=== PATIENT | female | born 1950 | race Caucasian/White ===

== ENCOUNTER 2022-03-05 09:22 | Outpatient (RCR) | payer MEDICARE, OTHER, SELFPAY | END 2023-01-15 23:59 | disposition home or self-care (01) | PROVIDERS: Visit Provider Podiatrist | DX: S82.61XD Displaced fracture of lateral malleolus of right fibula, subsequent encounter for closed fracture with routine healing (principal); Z51.89 Encounter for other specified aftercare ==

== ENCOUNTER 2025-01-19 15:06 | Emergency (ER) | payer MEDICARE, OTHER, SELFPAY ==
--- OUTSIDE RECORDS SUMMARY | 2025-01-19 15:09 | XMS_ITS | Clinical Summary ---
Author Organization [facility] Address [address] [place] [id number] Care Team Providers Care Benefits Consulting Analyst Name Role Phone Shaun Raya DO Primary Care Provider [phone] Allergies Active Allergy Reactions Criticality Noted Date Comments Codeine Atopic Dermatitis,Itching 07/23/2012 Penicillins Other - Describe In Comment Field,Rash Low 07/23/2012 Sulfa (Sulfonamide Antibiotics) Nausea And Vomiting,*Unknown,Ot her - Describe In Comment Field 07/23/2012 Other reaction(s): Other (Comment), Other (See Comments) Stiff joints Joint stiffness Joint stiffness Stiff joints Joint stiffness Medications SUMAtriptan (IMITREX) 100 mg tablet Take 100 mg by mouth every 2 hours. Active clobetasol (TEMOVATE) 0.05 % cream 11/24/19 24 Active rosuvastatin 20 mg tabletIndications: Hyperlipidemia, unspecified hyperlipidemia type TAKE ONE TABLET BY MOUTH ONE TIME DAILY AT BEDTIME 90 Tablet 1 12/31/19 25 Active hydroCHLOROthiazid e 12.5 mg tabletIndications: Essential hypertension TAKE ONE TABLET BY MOUTH ONE TIME DAILY 90 Tablet 1 12/31/19 25 Active rosuvastatin (CRESTOR) 20 mg tabletIndications: Hyperlipidemia, unspecified hyperlipidemia type Take 1 Tablet (20 mg) by mouth at bedtime. 90 Tablet 3 01/12/20 24 025 Discontinued hydroCHLOROthiazid e 12.5 mg tabletIndications: Essential hypertension Take 1 Tablet (12.5 mg) by mouth once daily. 90 Tablet 1 07/11/19 25 025 Discontinued Hospital, Clinic, or Other Facility Administered Medication Ordered Dose Route Frequency Start Date End Date Status denosumab (PROLIA) injection 60 mgIndications:Osteop orosis, unspecified osteoporosis type, unspecified pathological fracture presence 60 mg SubQ Q 26 WEEKS 12/24/2023 12/22/2024 Ended denosumab (PROLIA) injection 60 mgIndications:Osteop orosis, unspecified osteoporosis type, unspecified pathological fracture presence 60 mg SubQ Q 6 MONTHS (24 WEEKS) 06/28/2024 01/12/2025 Ended Active Problems Problem Noted Date Diagnosed Date Allergic rhinitis 12/09/2021 Overview (12/09/2021): dust, mold, ragweed, cottonwood LUNA (dyspnea on exertion) 12/09/2021 H/O malignant neoplasm of skin 12/09/2021 Overview (12/09/2021): 1994 History of breast implant removal 12/09/2021 Overview (12/09/2021): silicone, ruptured, removed 2010 Postmenopausal 12/09/2021 Osteoporosis 04/11/2021 Hx of colonic polyps 03/27/2021 Overview (12/09/2021): Added automatically from request for surgery [id number] BPPV (benign paroxysmal positional vertigo) 12/2020 Agatston CAC score, <100 06/12/2017 Overview (12/09/2021): IMPRESSION: * Total calcium score = 0 Dyslipidemia 05/05/2017 Essential hypertension 05/05/2017 Left bundle branch block (LBBB) 05/05/2017 Migraine headache 02/06/2017 Encounters Date Type Department Care Team Description 01/12/2025 8:45 AM CDT Nurse/Clinic Staff Only [facility] [address] [place] [address] Immunization/Injecti on (PROLIA INJECTION ) 01/12/2025 Travel 01/10/2025 Travel 01/09/2025 Telephone [facility] [address] [place] [address] Shaun Raya, Follow Up (Prior auth) 12/29/2024 Refill [facility] [address] [place] [place] [address] Shaun Raya DO Refill Request (Rosuvastatin, Hydrochlorothiazide) from Last 3 Months Immunizations Immunization Administration Dates Next Due COVID-19 vaccine (Moderna 10 0mcg/0.5mL) PF, MDV 10/17/2020,09/17/2020 Influenza Virus, Unspecified 04/04/2021,02/27/20 20,04/26/2019 Influenza, Inactivated AIIV4 (Age 65+ Years) Preserv Free 04/04/2022,04/04/2021 Pneumococcal Poly,23-Valent (Pneumovax) 03/05/20 21 Pneumococcal conj 13-Valent (Prevnar 13) 020 Tdap 09/05/2019,01/12/2013,04/15/2012 Zoster (Shingrix-RZV, recombinant) 04/04/2021 Zoster (Zostavax-ZVL, live) 12/07/2012, 2 Family History Medical History Relation Name Comments Alcoholism Brother Drug Abuse Brother Liver disease Brother Arthritis Father Cancer Father Other Father Stomach cancer Father Arthritis Mother COPD Mother Hyperlipidemia Mother Hypertension Mother Other Mother Cancer-breast No Family History Cancer-colon No Family History Esophageal cancer No Family History Relation Name Status Comments Brother Father Mother Alive Social History Tobacco Use Types Packs/Day Years Used Date Smoking Tobacco: Never Smokeless Tobacco: Never Tobacco Cessation:Counseling Given: Yes Alcohol Use Standard Drinks/Week Comments Yes 0 (1 standard drink = 0.6 oz pur e alcohol) PHQ-2 Answer Date Recorded PHQ-2 TOTAL SCORE 0 12/24/2023 Social Connections Answer Date Recorded Do you often feel lonely or isolated from those around you? 0 12/24/2023 Financial Resource Strain Answer Date R ecorded Difficulty of Paying Living Expenses 3 12/24/2023 Difficulty of Paying Living Expenses Not on file 12/24/2023 Food Insecurity Answer Date Recorded Do you worry your food will run out before you are able to buy more? 1 12/24/2023 Transportation Needs Answer Date Record ed Does lack of transportation keep you from medica l appointments? 1 12/24/2023 Does lack of transportation keep you from work, meetings or getting things that you need? 1 12/24/2023 Housing Stability Answer Date Recorded What is your housing situation today? 1 12/24/2023 Utilities Answer Date Recorded Do you have trouble paying f or utilities (for example, heat, electricity, water, phone)? 1 12/24/2023 Comments No Sex and Gender Information Value Date Recorded Sex Assigned at Not on file Legal Sex Female 3:13 PM CDT Gender Identity Not on file Sexual Orientation Not on file Obstetrics History Last Filed Vital Signs Vital Sign Reading Time Taken Comments Blood Pressure 122/68 07/11/2024 9:44 AM HOPPER OPERATOR Pulse 72 07/11/2024 9:44 AM HOPPER OPERATOR Temperature 36.8 C (98.2 F) 12/09/2021 9:28 AM CDT Respiratory Rate - - Oxygen Saturation 96% 07/11/2024 9:44 AM HOPPER OPERATOR Inhaled Oxygen Concentration - - Weight 67.6 kg (149 lb) 07/11/2024 9:44 AM HOPPER OPERATOR Height 160.4 cm (5' 3.15) 12/24/2023 7:57 AM CD T Body Mass Index 26.27 12/24/2023 7:57 AM CDT Plan of Treatment Health Maintenance Due Date Last Done Comments Zoster (shingles) series for age 50+ (3 of 3) 05/30/2021 04/04/2021, 12/07/2012, 01/06/2012 COVID-19 vaccine series ( season) 2024 07/09/2022, 10/17/2020, 09/17/2020 BMI (ht and wt on same day) for age 18+ 12/23/2024 12/24/2023, 12/15/2022, 12/09/2021 Depression screening for age 12+ 12/24/2024 12/25/2023, 12/24/2023, 12/15/2022, Additional history exists Mammogram for age 45-75 12/24/2024 12/25/19 24, 01/20/2023, 12/22/2022, Additional history exists Medicare Wellness for age 65+ 12/24/2024 12/24/2023, 12/15/2022 Influenza Vaccine (#1) 2025 2, 04/04/2021, 04/04/2021, Additional history exists Colonoscopy through age 75 05/15/202605/15 (Verified in Care Everywhere or Patient Record) RSV vaccine for adults or (1 - 1-dose 75+ series) 09/27/2027 Lipids for age 45-75 01/10/2029 01/11/2024, 12/15/2022, 12/27/2021 Tetanus booster 09/04/2029 09/05/2019, 12/27, 04/15/2012 Pneumococcal series for age 50+ Completed 03/05/2021, 09/05/2019 DEXA/DXA scan for age 65+ Completed 2022, 04/05/2021 (Verified in Care Everywhere or Patient Record) Hepatitis C screening for age 18-79 Completed 01/11/2024 Hepatitis B series for 19+ Aged Out N o longer eligible based on patient's age to complete this topic Procedures Procedure Name Priority Date/Time Associated Diagnosis Comments ANTI HCV Routine 01/11/2024 12:52 PM CDT Need for hepatitis C screening test LIPID PANEL W REFLEX MEASURED LDL Routine 01/11/2024 12:52 PM CDT Lipid screening XR MAMMO CROW BILAT SCREEN Routine 12/25/2023 1:18 PM CDT Visit for screening mammogram Encounter for screening mammogram for malignant neoplasm of breast XR DXA BONE DENSITY 2 SITES AXIAL Routine 12/22/2022 3:20 PM CDT Age related osteoporosis, unspecified pathological fracture presence from Last 3 Months or Most Recently Relevant to Health Maintenance Results * (ABNORMAL) LIPID PANEL W REFLEX MEASURED LDL (01/11/2024 12:52 PM CDT) CHOLESTEROL,TOTAL 237(H) 100 - 199 mg/dL 01/12/2024 5:06 AM CDT [facility] Comment: Cholesterol, Total Reference Ranges Desirable <200 mg/dL Borderline 200-239 mg/dL High >=240 mg/dL TRIGLYCERIDES 145 <150 mg/dL 01/12/2024 5:06 AM CDT [facility] HDL CHOLESTEROL 51 >40 mg/dL 5:06 AM CDT [facility] NON-HDL CHOLESTEROL 186(H) <145 mg/dl 01/12/2024 5:06 AM CDT [facility] CHOL/HDL RATIO 4.65(H) <4.50 01/12/2024 5:06 AM CDT [facility] LDL CHOLESTEROL 157(H) <=130 mg/dL 01/12/2024 5:06 AM CDT [facility] VLDL CHOLESTEROL 29 <=30 mg/dL 01/12/2024 5:06 AM CDT [facility] PROVIDER ORDERED STATUS RANDOM 01/12/2024 5:06 AM T [facility] Blood BLOOD SPECIMEN / Unknown Venipuncture / Unknown 01/11/2024 12:52 PM CDT 01/11/2024 12:55 PM CDT us Shaun Raya DO CHEMISTRY Final Result [facility] [address] [place] [address], * ANTI HCV (01/11/2024 12:52 PM CDT) HEPATITIS C ANTIBODY Non-Reacti ve Non-React callum 01/12/2024 5:11 AM CDT [facility] Comment:Please note, per www .CDC.gov: If a patient is known to be at high risk of HCV infection, or is symptomatic, and the physician's suspicion of HCV infection is high, HCV RNA testing is often employed and is of diagnostic value, even after an initial negative anti-HCV test result. Blood BLOOD SPECIMEN / Unknown Venipuncture / Unknown 01/11/2024 12:52 PM CDT 01/11/2024 12:55 PM CDT [facility] Elver DO SEND OUTS Final Result [facility] [address] [place] [address], [place] * XR MAMMO CROW BILAT SCREEN (12/25/2023 1:18 PM CDT) Anatomical Region Laterality Modality BREASTS, Breast Left, Breast Right Bilateral Mammography Impressions 12/29/2023 2:41 PM CDT There is no radiographic evidence for malignancy. Recommend annual mammograms. MAMMOGRAM ASSESSMENT: ACR 1 Negative PATIENTS: You will also receive a letter with your examination results in an easy to read format. If you have questions about your results, please contact your referring provider. Narrative 12/29/2023 2:41 PM CDT For Patients: As a result of the Century Cures Act, medical imaging exams and procedure reports are released immediately into your electronic medical record. You may view this report before your referring provider. If you have questions, please contact your health care provider. XR MAMMO CROW BILAT SCREEN [[id number]] CLINICAL HISTORY: This is an asymptomatic 73 y.o. patient. INDICATION FOR EXAM: Mammogram Screening. TECHNIQUE: CC & MLO views were obtained. This study was evaluated with the assistance of Computer-Aided Detection. Breast Tomosynthesis was used in interpretation. COMPARISON FILM: Yes 12/22/22 [facility] FINDINGS: There are scattered areas of fibroglandular density. There are no dominant masses, suspicious micro calcifications or areas of architectural distortion. Shaun Raya DO MAMMO Final Result * (ABNORMAL) XR DXA BONE DENSITY 2 SITES AXIAL (12/22/2022 3:20 PM CDT) Anatomical Region Laterality Modality Spine, HIPS, HIPL, HIPR Other Impressions 01/01/2023 12:51 PM CDT Osteoporosis. RECOMMENDATIONS: The National Osteoporosis Foundation recommends pharmacologic treatment for patients with T-scores of -2.5 or less, patients with prior history of fragility fractures, or patients with 10-year probability of greater than 3% at hips or greater than 20% of suffering major osteoporotic fractures. Recommend continued optimization of calcium and vitamin D intake through dietary means and/or supplementation and regular exercise. Consider pharmacologic therapy for osteoporosis. Follow-up bone density reading in 2 years if therapy initiated to assess therapeutic efficacy. Letty Vera PA-C [facility] 01/01/2023 Narrative 01/01/2023 12:51 PM CDT For Patients: Results are automatically released to your [facility] ([facility]) account once available, in compliance with federal regulations. This means that you may see your results before your provider has had a chance to review them. Please allow 2-3 business days for your provider to comment on the results. XR DXA Bone Mineral Density (BMD) EXAM LOCATION: [address] [address] PATIENT NAME: Cherie Johnson DATE OF : 1950 EXAM DATE: 12/22/2022 REQUESTING PROVIDER: Shaun Raya DO GENDER AT : female HEIGHT: 5' 2.91 (12/15/2022) WEIGHT: 136 lb 3.2 oz (12/15/2022) MENOPAUSAL STATUS: Postmenopausal RACE/ETHNICITY: White RISK FACTORS: History of Fragility Fracture (at a major site) and White Race CURRENT MEDICATION FOR BONE LOSS: NONE INDICATION: Follow-up of existing osteoporosis COMPARISON DATE(S): None DXA scans are compared to prior studies for a patient only when the two (or more) studies were performed on the same scanner. It is not possible to compare data generated on one scanner to data from another because there are not standards in DXA equipment. This applies even if the two scanners are made by the same lime mixer. PROCEDURE: Dual-energy x-ray absorptiometry performed with routine technique. Reporting is completed in the form of a T-score. The T-score represents the standard deviation from peak bone mass based on young healthy adult. A Z-score is used for diagnosis in premenopausal women, and for men under the age of 50. FINDINGS: RESULT LUMBAR SPINE L1 - L4 BMD: 0.858 g/cm2 T-Score: - 2.7 Z-Score: - 0.9 Change from prior: None RESULTS FEMUR Left femoral neck BMD: 0.705 g/cm2 T-Score: - 2.4 Z-Score: - 0.6 Change from prior: None Right femoral neck BMD: 0.697 g/cm2 T-Score: - 2.5 Z-Score: - 0.7 Change from prior: None Left hip BMD: 0.747 g/cm2 T-Score: - 2.1 Z-Score: - 0.5 Change from prior: None Right hip BMD: 0.737 g/cm2 T-Score: - 2.1 Z-Score: - 0.6 Change from prior: None WHO criteria: Normal: T-score at or above -1 SD Osteopenia: T-score between -1.1 and -2.4 SD Osteoporosis: T-score at or below -2.5 SD FRAX RISK CALCULATION (USED FOR OSTEOPENIA ONLY): 10-year probability of major osteoporotic fracture: 22.5%. 10-year probability of hip fracture: 5.7%. Tracyi Elver DO DEXA Final Result from Last 3 Months or Most Recently Relevant to Health Maintenance Insurance MEDICARE PB ONLY [employer] MEDICARE PART B HB ONLY Care Teams Benefits Consulting Analyst Relationship Specialty Start Date End Date Shaun Raya DO [address] [place] [address] PCP - General Family Practice 12/08/23
[2025-01-19 15:24] VITALS: BP 194/102; PULSE 74; RESP 20; TEMP 36.7; O2SAT 98
--- NOTE | 2025-01-19 15:57 | ED.GENADULT ---
HPI - General Adult General Date Seen: 01/19/25 Chief complaint: Dizziness/Vertigo Stated complaint: feeling dizzy, nausea Time Seen by Provider: 01/19/25 15:07 History of Present Illness HPI narrative: Patient is a 74-year-old here with her for evaluation of vertigo, with onset about 2 days ago. She does have a history of a couple episodes of vertigo previously, has been seen by physical therapy previously and does have exercises that she does which usually castillo off her symptoms reasonably well. She has been trying to do them and she does feel like they have improve things a little bit but she still is having vertigo. She notes that she was cleaning her bathroom on Thursday when symptoms started. She says she has generally been in bed since then. If she does not move her head she feels okay but as soon as she turns her head or tries to stand up she starts to spin. She has had some nausea associated with that but no vomiting, no headache, and she denies any other neurologic symptoms. Shows history of hypertension, denies other significant health history. She does not smoke, no alcohol use. Related Data Home Medications ?Medication ?Instructions ?Recorded ?Confirmed hydrochlorothiazide 12.5 mg tablet 12.5 mg PO DAILY 01/19/25 01/19/25 rosuvastatin 20 mg tablet 20 mg PO QPM 01/19/25 01/19/25 Previous Rx's ?Medication ?Instructions ?Recorded meclizine 25 mg tablet 25 mg PO TID PRN #15 tabs 01/19/25 Allergies Allergy/AdvReac Type Severity Reaction Status Date / Time Penicillins Allergy Intermediate Rash Verified 01/19/25 15:28 Review of Systems Status of ROS: Reports: 6 or more systems reviewed and unremarkable except as noted in History and below Exam Narrative: Exam Narrative: Vital signs reviewed In general, alert, nontoxic elderly woman. She looks comfortable lying still in bed. Head: Normocephalic, atraumatic. Eyes: Sclera clear. Pupils equal and reactive. Nystagmus noted on leftward gaze. ENT: Mucous membranes moist. Neck: Supple without adenopathy. Heart: Regular rate and rhythm without murmur. Lungs: Clear. No increased work of breathing, crackles or wheezes. Abdomen: Soft, nontender to palpation. Extremities: Well perfused, pulses intact. No significant edema. Neurologic: Alert, conversant. Speech fluent, face symmetric. Moves all extremities equally, strength 5 of 5 in bilateral upper and lower extremities. Cerebellar function is intact by finger-nose and heel-malave testing. Skin: Warm, dry well perfused. Affect: Normal. Const: Vital Signs, click to edit/add: Vital Signs - 24 hr 01/19/25 15:24 01/19/25 17:55 Temperature 98.0 F 97.6 F Pulse Rate [Pulse Oximeter] 74 64 Respiratory Rate 20 18 Blood Pressure [Ri ght Upper Arm] 194/102 H 131/69 Pulse Oximetry 98 96 Oxygen Delivery Me thod Room Air Room Air Course Course ED Course: Patient was significantly hypertensive on arrival although her blood pressure did improve without intervention. Overall her presentation is most significant with positional vertigo. She does have a history of this previously, there are no other findings on exam, and her symptoms are very dependent on movement. She did have an EKG, this shows a sinus rhythm with a ventricular rate of 66. She does have a left bundle-branch block and we do not have any previous records to confirm that this is old. She does not have any chest pain or other symptoms suspicious for an acute coronary event. I will add on a troponin along with some other basic labs, for the time being I do not think neural imaging is indicated. Symptoms are markedly improved after medications, she is feeling much better. Her blood pressure is now 131/69. Her labs are notable for normal hemoglobin, normal electrolytes, blood sugar of 117, troponin of 0.01. I think it is reasonable to let her go home. I am going to get her followed up in ENT clinic. Discussed that if she is feeling worse has new symptoms neurologic changes, can not manage at home etcetera come back to the ER right away. Otherwise, I sent prescriptions for meclizine as well as Zofran for symptomatic control. Vital Signs Vital signs: Initial Vital Signs Temperature 98.0 F 01/19/25 15:24 Temperature Source Temporal Artery Scan 01/19/25 15:24 Pulse Rate 74 01/19/25 15:24 Respiratory Rate 20 01/19/25 15:24 Blood Pressure 194/102 H 01/19/25 15:24 Blood Pressure Mean 132 H 01/19/25 15:24 Pulse Oximetry 98 01/19/25 15:24 Oxygen Delivery Method Room Air 01/19/25 15:24 Vital Signs Temperature 98.0 F 01/19/25 15:24 Pulse Rate 74 01/19/25 15:24 Respiratory Rate 20 01/19/25 15:24 Blood Pressure 194/102 H 01/19/25 15:24 Pulse Oximetry 98 01/19/25 15:24 Oxygen Delivery Method Room Air 01/19/25 15:24 Temperature 97.6 F 01/19/25 17:55 Pulse Rate 64 01/19/25 17:55 Respiratory Rate 18 01/19/25 17:55 Blood Pressure 131/69 01/19/25 17:55 Pulse Oximetry 96 01/19/25 17:55 Oxygen Delivery Method Room Air 01/19/25 17:55 Medications Administered Medications: Discontinued Medications Generic Name Dose Route Start Last Admin Trade Name Freq PRN Reason Stop Dose Admin Diazepam 5 mg 01/19/25 15:48 01/19/25 16:12 Diazepam 5 Mg/Ml Inj IV 01/19/25 15:49 5 mg ONCE ONE Administration Meclizine HCl 25 mg 01/19/25 15:48 01/19/25 16:10 Meclizine Hcl 25 Mg Tablet PO 01/19/25 15:49 25 mg ONCE ONE Administration Ondansetron HCl 4 mg 01/19/25 15:48 01/19/25 16:10 Ondansetron 2 Mg/Ml Inj IVP 01/19/25 15:49 4 mg ONCE ONE Administration Medical Decision Making Lab Data Labs: Lab Results 01/19/25 Range/Units 16:01 WBC 10.74 (4.50-11.00) K/uL RBC 5.47 H (4.00-5.20) m/uL Hgb 16.0 (12.0-16.0) gm/dL Hct 47.0 (33.0-51.0) % MCV 86 (80-100) fL MCH 29 (26-34) pg MCHC 34 (32-36) gm/dL RDW Coeff of Cha 12.4 (11.5-15.5) % Plt Count 214 (140-440) K/uL Neut % (Auto) 77.6 H (42.0-72.0) % Lymph % (Auto) 14.2 L (20-44) % [place] % (Auto) 6.7 (0.0-11.0) % Eos % (Auto) 0.9 (0.0-7.0) % Baso % (Auto) 0.5 (0.0-3.0) % Neut # (Auto) 8.30 H (1.7-7.0) K/uL Lymph # (Auto) 1.50 (0.90-2.90) K/uL [place] # (Auto) 0.70 (0.00-0.90) K/UL Eos # (Auto) 0.10 (0.00-0.50) K/uL Baso # (Auto) 0.05 (0.00-0.30) K/uL Abs Immat Gran (auto) 0.01 (0.00-0.30) K/uL Imm/Tot Granulo (auto) 0.1 % Sodium 137 (135-149) mmol/L Potassium 3.7 (3.6-5.1) mmol/L Chloride 101 (96-114) mmol/L Carbon Dioxide 30 (20-32) mmol/L Anion Gap 6 L (7-15) mEq/L BUN 18 (7-30) mg/dL Creatinine 0.6 (0.5-1.5) mg/dL Estimated GFR 95 ml/min Glucose 117 H (60-115) mg/dL Calcium 9.9 (8.4-10.6) mg/dL Magnesium 1.9 (1.5-2.6) mg/dL Total Bilirubin 0.8 (0.1-1.5) mg/dL AST 40 H (12-35) U/L ALT 27 (4-35) U/L Alkaline Phosphatase 66 (40-150) U/L Troponin I 0.01 (0.01-0.04) ng/mL Total Protein 7.8 (6.0-8.3) g/dL Albumin 4.6 (3.3-5.0) g/dL Discharge Plan Discharge Clinical Impression: Positional vertigo Patient Disposition: Home, Self-Care Condition: Improved Instructions: Vertigo (ED) Additional Instructions: I have prescribed 2 medications to help with symptoms, 1 is Zofran which is an anti nausea medicine in 1 is meclizine, which we use for symptoms of dizziness/vertigo. Your labs today are reassuring, your hemoglobin, electrolytes, blood sugar, kidney function and heart labs are all within normal limits. Someone from ENT clinic should reach out to tomorrow to get follow-up scheduled in their clinic. If at any time he feels significantly worse, cannot function at home, have new symptoms such as changes in speech, strength, numbness, vision etcetera, return to the emergency department right away. Prescriptions: New meclizine 25 mg tablet 25 mg PO TID PRNQty: 15 0RF No Action rosuvastatin 20 mg tablet 20 mg PO QPM hydrochlorothiazide 12.5 mg tablet 12.5 mg PO DAILY Follow Up/Referrals: Provider,Not a Local [Primary Care Provider, Family Practice] Stand Alone Forms: [employer] Info Instructions
[2025-01-19 16:07] LABS: Hematocrit* 47.0 % (33.0-51.0); Hemoglobin* 16.0 gm/dL (12.0-16.0); Immature Granulocytes Abs Auto 0.01 K/uL (0.00-0.30); Immature Granulocytes Pct Auto 0.1 %; Mean Corpuscular HGB Conc 34 gm/dL (32-36); Mean Corpuscular Hemoglobin 29 pg (26-34); Mean Corpuscular Volume 86 fL (80-100); RDW Coefficient of Variation % 12.4 % (11.5-15.5); Red Blood Count* 5.47 m/uL (4.00-5.20); White Blood Count* 10.74 K/uL (4.50-11.00)
[2025-01-19] MEDS: ONDANSETRON 2 MG/ML inj 4 MG IVP (16:10)
[2025-01-19] MEDS: MECLIZINE HCL 25 MG TABLET PO (16:10)
[2025-01-19 16:11] LABS: Lymphocytes Absolute Auto 1.50 K/uL (0.90-2.90); Slide Review Reflex No
[2025-01-19] MEDS: diazePAM 5 MG/ML inj IV (16:12)
[2025-01-19 16:23] LABS: Albumin* 4.6 g/dL (3.3-5.0); Chloride* 101 mmol/L (96-114); Potassium* 3.7 mmol/L (3.6-5.1); Sodium* 137 mmol/L (135-149)
[2025-01-19 16:26] LABS: Alanine Aminotransferase* 27 U/L (4-35); Alkaline Phosphatase* 66 U/L (40-150); Anion Gap 6 mEq/L (7-15); Aspartate Amino Transferase* 40 U/L (12-35); Bilirubin Total* 0.8 mg/dL (0.1-1.5); Blood Urea Nitrogen* 18 mg/dL (7-30); Calcium* 9.9 mg/dL (8.4-10.6); Carbon Dioxide* 30 mmol/L (20-32); Creatinine* 0.6 mg/dL (0.5-1.5); Estimated Glomerular Filt Rate 95 ml/min; Glucose* 117 mg/dL (60-115); Total Protein* 7.8 g/dL (6.0-8.3)
[2025-01-19 17:55] VITALS: BP 131/69; PULSE 64; RESP 18; TEMP 36.4; O2SAT 96
== END 2025-01-19 17:57 | disposition home or self-care (01) ==
PROVIDERS: Emergency Provider Emergency Medicine
DX: H81.13 Benign paroxysmal vertigo, bilateral (principal)
CPT/HCPCS: 36415; 80053; 83735; 84484; 85025; 93005; 96374; 96375; 99284; A9270; J2405; J3360

== ENCOUNTER 2025-02-02 13:32 | Outpatient (RCR) | payer MEDICARE, OTHER, SELFPAY ==
--- NOTE | 2025-02-06 12:53 | PT.OPE ---
PT [place] [facility] PT [facility] Eval Start: 02/03/25 09:39 Freq: Status: Active Protocol: Document 02/02/25 17:41 JOSÉ LUIS (Rec: 02/03/25 09:43 JOSÉ LUIS [id number]) E-signed By Grady Tai DPT, MS Physical Therapy Outpatient Evaluation Insurance Information Recert Due Date 05/04/25 Insurance Name Medicare B Medical Diagnosis Dizziness and giddiness Treating Diagnosis R BPPV, imbalance, sensory disorganization Subjective Preferred Name Rose Marie Peters Pt is a 74 y.o. female who presents to PT with c/o of positional dizziness of insidious origin while cleaning her house on 01/17/25. High levels of dizziness and nausea without vomiting but pt spent 3 days in bed after sx onset with dizziness every time attempting to get up from supine. Describes sxs as room spinning dizziness with disorientation for 5-10 seconds following. Dizziness most frequently occurs with supine <>sit transfers in and out of bed, and with rolling in bed. Sx intensity improving but has experienced high levels of imbalance she generally feels off with mental and physical fatigue as the day progresses. Denies other changes in her hearing or vision. One previous episode of BPPV with successful home tx but she has not been able to resolve sxs. PMH includes osteoporosis and HTN with pt describing lightheadedness over the past few weeks due to her BP medication which will be adjusted by her PCP soon. AGGR factors: rolling to R, lying on R side, looking up, fwd bending, supine<>sit and sit<>stand. ALLEV factors: rest, slower movement. Pain Comments Mild-mod dizziness Current Work Status Retired Precautions Therapy Limitations/ Not Limited Systems Review Objective Functional Test DHI: 68 Performed & Score Assessment Assessment/ Pt displays signs and symptoms consistent with R Impression posterior canal BPPV with + R debbie hallpike testing. Pt also displays sensory disorganization with overreliance on vision for balance. Pt presented as resolved following CRM x 2 for R posterior canal with negative testing following. Emphasized importance of holding each position for >60 seconds with home tx. Sensory disorganization with balance testing consistent with peripheral vestibular dysfunction. All other neurological testing normal. She will benefit from continued skilled PT intervention to address these limitations. Primary Functional Rolling to R, lying on R side, looking up, fwd bending, Limitations supine<>sit Plan of Care Rehabilitation Excellent Potential Physical Therapy Therapy goals to be completed in 10 weeks: Goals 1. Patient will display resolution of R posterior canalithiasis BPPV symptoms for >5 consecutive days to improve safety with household cleaning activities. 2. Pt will display improved balance on compliant surfaces with e/c to improve safety walking in the dark . 3. Pt will report >75% improvement on DHI questionnaire to improve tolerance to daily activities. Coordination/ Referral Source Communication With Treatment Plan/ Joint Mobilization,Manual Therapy,Neuromuscular Re-ed, Direct Interventions Therapeutic Exercises Frequency/Duration 1-2x per week for as needed for at least 6-10 visits. Patient Will Be Completion of LTG(s),Skills Plateau,Independent w/HEP, Discharged From Independently Progressing Therapy Evaluation Billing Untimed Code 25 Treatment Minutes Complexity Moderate Certification Information Initial 02/03/25 Certification Date Ending Certification 05/04/25 Date Provider Signature Yes Required Provider Signature POC & Medical Necessity Shows Agreement With Physician NPI Number Write NPI# Here Physician Comment/ : Change Physician Signature Please Sign/Date Here & Date Requested
== END 2025-06-02 23:59 | disposition home or self-care (01) ==
PROVIDERS: Visit Provider Physician Assistant
DX: R42 Dizziness and giddiness (principal); Z51.89 Encounter for other specified aftercare
CPT/HCPCS: 97162